=== PATIENT | female | born 1935 | race Caucasian/White ===

== ENCOUNTER → 2023-02-15 | Outpatient (CLI) | payer OTHER ==
[~2023-02-15] MED LIST: ACET500 PO; ALEN70 PO; ASCO1ER PO; Aspir-Trin325 MG PO; BENADRYL25 MG PO; CODLIVC PO; DIPH50 PO; ERGO400 PO; Hydrocodone-Ap1 EA23 PO; MAGOXI400 PO; Norco 5-325 Ta1 EACH PO; TEMA15 PO; TYLENOL PM PO; VITAMIN D325 MCG PO; VITB100 PO
== END | disposition home or self-care (01) ==
LOC: LAB 17:44 → LAB SHORT 17:44
DX: N39.0 Urinary tract infection, site not specified (principal)
CPT/HCPCS: 87086

== ENCOUNTER → 2023-07-21 | Outpatient (CLI) | payer OTHER | LOC: LAB 11:01 → LAB SHORT 11:01 | DX: R35.0 Frequency of micturition (principal) | CPT/HCPCS: 87086; 87147 ==

== ENCOUNTER → 2024-02-02 | Outpatient (CLI) | payer OTHER ==
[2024-02-02 18:40] LABS: BASOPHILS ABSOLUTE AUTO 0.03 K/mm3 (0.00-0.23); BASOPHILS PERCENT AUTO 1 % (0-2); EOSINOPHILS ABSOLUTE AUTO 0.12 K/mm3 (0.00-0.68); EOSINOPHILS PERCENT AUTO 3 % (0-6); Hemoglobin 11.4 g/dL (11.5-16.0); IMMATURE GRAN ABSOLUTE AUTO 0.01 K/mm3 (0.00-0.10); IMMATURE GRAN PERCENT AUTO 0 % (0-1); LYMPHOCYTES ABSOLUTE AUTO 1.07 K/mm3 (0.84-5.20); LYMPHOCYTES PERCENT AUTO 22 % (21-46); MONOCYTES ABSOLUTE AUTO 0.52 K/mm3 (0.16-1.47); MONOCYTES PERCENT AUTO 11 % (4-13); Mean Corpuscular HGB 34.9 pg (26.0-34.0); Mean Corpuscular HGB Conc 32.6 g/dL (31.5-36.5); Mean Corpuscular Volume 107 fL (80-100); Mean Platelet Volume 10.2 fL (9.1-12.4); NEUTROPHILS ABSOLUTE AUTO 3.14 K/mm3 (1.96-9.15); NEUTROPHILS PERCENT AUTO 64 % (41-73); Platelet Count 207 K/mm3 (150-400); RDW Coefficient Variation 13.6 % (11.7-14.2); RDW Standard Deviation 54.1 fL (35.1-46.3); Red Blood Cell Count 3.27 M/mm3 (3.80-5.20); White Blood Cell Count 4.89 K/mm3 (4.00-11.30)
[2024-02-02 18:58] LABS: Albumin, Blood 3.5 g/dL (3.4-5.0); Albumin/Globulin Ratio 1.1 (0.8-1.8); Bilirubin, Total 0.5 mg/dL (0.1-1.0); Bun/Creatinine Ratio 28.9 (12.0-20.0); Creatinine, Blood 0.8 mg/dL (0.40-1.00); Globulin, Blood 3.2 g/dL (2.2-4.0); Potassium, Blood 3.8 mmol/L (3.5-5.5); Thyroid Stimulating Hormone 1.13 uIU/mL (0.360-4.800); Total Protein, Blood 6.7 g/dL (6.4-8.2)
== END ==
LOC: LAB 17:29 → LAB SHORT 17:29
PROVIDERS: Family Medicine
DX: I10 Essential (primary) hypertension (principal); R53.83 Other fatigue
CPT/HCPCS: 80053; 84443; 85025

== ENCOUNTER 2024-06-18 10:35 | Day surgery (SDC) | payer OTHER, MEDICARE ==
[~2024-06-18] VITALS: Ht 157.5 cm; Wt 51.1 kg
[~2024-06-18 10:35] MED LIST changes: +Lactated Ringer's 1,000 ML IV ONE; +Lidocaine HCl 2% 10 ML SDA ONE
[2024-06-18] MEDS ORDERED: CeFAZolin Sodium 2,000 MG VIAL ONE (10:47)
[2024-06-18] MEDS ORDERED: DILTIAZEM 24HR180 M5 PO (11:09)
[2024-06-18] MEDS ORDERED: Lactated Ringer's 1,000 ML IV ONE (11:24)
--- NOTE | 2024-06-18 12:10 | NUR ---
06/18/24 1210 NICOLAS LLANES CALL LIGHT IN REACH. RESTING ON GURNEY, RAILS UP, AND BRAKES LOCKED. PT STATES ALL NEEDS MET AT THIS TIME.
[2024-06-18] MEDS ORDERED: Etomidate 2MG / ML 10ML Vial ONE (12:11)
[2024-06-18] MEDS ORDERED: Lidocaine HCl 2% 10 ML SDA ONE (12:14)
[2024-06-18] MEDS ORDERED: FentaNYL Citrate 50 MCG/ML 2 ML Injection ONE ×2 (12:25→13:36)
[2024-06-18] MEDS ORDERED: Ketorolac Tromethamine 30mg Vial ONE ×2 (12:32→12:37)
[2024-06-18] MEDS ORDERED: Dexamethasone Sod Phos 10 MG/ML 1ML VIAL ONE (12:37)
[2024-06-18] MEDS ORDERED: Ondansetron HCl 2 MG / ML 2ML Vial ONE (12:37)
[2024-06-18] MEDS ORDERED: HYDROcodone 5-APAP 325 TAB ONE (13:36)
[2024-06-18 14:00] VITALS: BP 126/94
== END 2024-06-18 14:30 | disposition home or self-care (01) ==
LOC: ORSCSDS 10:35
PROVIDERS: Orthopaedic Surgery
PROC: 0PSJ04Z Reposition Left Radius with Internal Fixation Device, Open Approach (ICD-10-PCS; principal; 2024-06-18 12:00)
DX: S52.572A Other intraarticular fracture of lower end of left radius, initial encounter for closed fracture (principal); W01.0XXA Fall on same level from slipping, tripping and stumbling without subsequent striking against object, initial encounter
CPT/HCPCS: A9270; C1713; J0690; J1100; J1885; J2003; J2405; J3010; J7120